=== PATIENT | female | born 1965 | race Asian ===

== ENCOUNTER → 2017-11-17 | Day surgery (SDC) | payer OTHER ==
[~2017-11-17] MED LIST: CARVEDILOL3.125 MG PO; DEXAMETHASONE SOD PHOS INJ 4 MG/ML VIAL ONE; FENTANYL CITRATE/PF 100MCG/2 ML INJ ONE; GLYCOPYRROLATE INJ 1MG/ 5 ML SYR ONE; HYDRALAZINE HCL 20 MG/ML VIAL ONE; LIDOCAINE 1% W/EPINEPHRINE 20 ML VIAL ONE; LIDOCAINE HCL 2% LOCAL INJ 5 ML SDV VIAL INJ ONE; METOCLOPRAMIDE HCL 10 MG/2ML VIAL ONE; MIDAZOLAM HCL 2 MG/2 ML VIAL ONE; MUPIROCIN 2% OINT 22 GM TUBE ONE; NEOSTIGMINE 5 MG/5ML SYR ONE; ONDANSETRON HCL INJ 2 MG/ML VIAL ONE; OXYMETAZOLINE HCL 0.05% NAS 1 SPRAY BTL ONE; PROPOFOL IV EMULSION 10 MG/ML 20 ML VIAL ONE; ROCURONIUM BROMIDE 10 MG/ML 5ML VIAL ONE; SEVOFLURANE INHAL SOLN 250 ML PEN BTL ONE
--- NOTE | 2017-11-17 10:23 | Operative Report ---
DATE OF PROCEDURE: November 17, 2017 PREOPERATIVE DIAGNOSES 1. Chronic left maxillary and ethmoid sinusitis. 2. Deviated septum. 3. Turbinate hypertrophy. POSTOPERATIVE DIAGNOSES 1. Chronic left maxillary and ethmoid sinusitis. 2. Left maxillary sinus cystic polyps. 3. Deviated septum. 4. Turbinate hypertrophy. PROCEDURES 1. Functional endoscopic sinus surgery (left maxillary antrostomy with removal of tissue, left anterior ethmoidectomy). 3. Septoplasty. SIGNIFICANT FINDINGS: Severe septal deviation to the left involving primarily the bony septum. Copious amounts of cystic polyps in the left maxillary sinus with the attachments inferiorly along floor of maxillary sinus. 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 ANESTHESIA: General endotracheal tube anesthesia. SPECIMENS REMOVED: Left maxillary sinus contents. ESTIMATED BLOOD LOSS: 40 mL. COMPLICATIONS: None. INDICATIONS: The patient a 51-year-old [place] female with a 2 months history of bilateral catholic and midfacial headaches. CT-sinus performed on October 04, 2017, revealed total opacification of the left anterior ethmoid and maxillary sinus, as well as severely deviated septum to the left. On examination, she has a deviated septum to the left with diffuse intranasal mucosal inflammation. She is scheduled for functional endoscopic sinus surgery on the left side with septoplasty and possible turbinate reductions for the treatment of chronic left maxillary and ethmoid sinusitis, deviated septum and turbinate hypertrophy. Risks and complications of the procedures were thoroughly discussed with the patient, and they include infection, bleeding, scarring, failure to improve, need for additional operations, persistent headaches, inability to smell or taste, chronic pain, leakage of brain fluid, damage to the visual pathways causing double vision, and possibly blindness, need for blood transfusions, damage to surrounding nerves, blood and muscles, septal perforation resulting in crusting, whistling and pain. She fully understands and gives consents. PROCEDURE: Patient was taken to the operating room and placed supine on the operating table where general anesthesia was achieved through orotracheal intubation. Eyes were taped. Ancef was administered. Injection with 6 mL of 1% lidocaine with 1:100,000 epinephrine was injected into the mucoperichondrial planes bilaterally along the septum. The nasal cavities were packed with Cottonoid pledgets soaked with Afrin. Face was prepped and draped in the usual sterile fashion. Cottonoid pledgets were then removed. Inspection with a 0-degree rigid nasal endoscope revealed the right nasal cavity to be clear. The septum was severely deviated to the left side causing bony spur that was indenting the left inferior turbinate. There is no evidence of tumors or purulence. However, there were polypoid tissue seen emanating from the left middle meatus. A hemitransfixion incision was then made on the left hand side with a 15 blade. Overlying mucoperichondrial was elevated past the bony cartilaginous junction. The deviated bony septum was taken down with Daquan-Felicity double-action rongeurs. In this way, the septum became straight. The left middle turbinate was then medialized slightly with a [place]. Injection with 1% lidocaine with 1:100,000 epinephrine was injected into the junction of the left middle turbinate and the lateral nasal wall, as well as the uncinate process. The uncinate process was taken down with backbiters and upbiting Steven-Cut instruments. The natural ostium of the left maxillary sinus was then identified and was enlarged with True-Cut instruments, backbiters, and a microdebrider. The left maxillary sinus contained copious amounts of cystic polyps with its attachments primarily along the floor of the left maxillary sinus. This was then thoroughly debrided with a microdebrider. Anterior ethmoidectomy was then performed on the left side with J-curettes, Steven-Cut instruments and the microdebrider taking care to take down the [place] cells, which were quite prominent. Following this, a hemitransfixion incision was repaired with interrupted 4-0 Monocryl followed by the placement of bilateral silastic septal splints, which were held in place with through and through 2-0 silk followed by the placement of Merocele packs, which were inserted into the nose bilaterally with its strings tied loosely around the columella. Patient was awakened in the operating room, extubated and taken to the recovery room in good condition. Job#: [id number] QUINN SHIELDS
[2017-11-17 10:30] VITALS: BP 137/83
== END | disposition home or self-care (01) ==
LOC: OR 05:48
PROVIDERS: ATTEND Otolaryngology
DX: J32.0 Chronic maxillary sinusitis (principal); J32.2 Chronic ethmoidal sinusitis; J34.2 Deviated nasal septum; J34.3 Hypertrophy of nasal turbinates; J34.89 Other specified disorders of nose and nasal sinuses; I10 Essential (primary) hypertension; M19.90 Unspecified osteoarthritis, unspecified site
CPT/HCPCS: 30520; 30999; 31254; 31267; 88305; 93005; J0360; J1100; J2001; J2250; J2405; J2765; J3490; 88304